=== PATIENT | male | born 1990 | race American Indian/Alaskan Native ===

== ENCOUNTER 2019-09-11 11:43 | Emergency (ER) | payer SELFPAY ==
[2019-09-11] MEDS ORDERED: levETIRAcetam 1000 MG/NS 0.75% 1,000 MG/100 ML BAG IV ONE (11:59)
[2019-09-11] MEDS ORDERED: SODIUM CHLORIDE 0.9% 1000 ML 1,000 ML IV ONE (11:59)
[2019-09-11] MEDS ORDERED: LORazepam 2 MG/ML VIAL IV PRN ×3 (12:04)
--- NOTE | 2019-09-11 12:05 | Emergency Department Report ---
ED Seizure HPI - General Chief Complaint: Seizure Stated Complaint: SEIZURE Time Seen by Provider: 09/11/19 11:54 Source: EMS Mode of arrival: Stretcher Limitations: No Limitations - History of Present Illness Initial Comments: Patient is 29 years old male with no significant past medical history. Patient brought to the emergency room from his work for evaluation of possible seizure. Patient coworker stated that patient was taking trash when all of a sudden fell backward and started convulsing for a few seconds and then he went to sleep after that. Patient stated that he does not remember any of that. Patient is now alert, oriented x3 in no acute distress. Patient is complaining of mild headache. Patient also presented with abrasion to the scalp, posterior side. On further questioning patient informed me that he has been drinking daily, he stated that he drink beer. Patient denied any visual hallucination but he admitted that he has been having some tremor and shaking. Patient denied any history of seizure before. No family history of seizure also. Patient started on a seizure precaution in the emergency room and started on Keppra. CHILO protocol calculated for possible alcohol withdrawal. Complaint: possible seizure -: Sudden, This morning Description of Episode: loss of consciousness, tonic-clonic movement, post-event confusion Witnessed:: Yes Trauma: Yes Place: work Possible Precipitating Event: alcohol withdrawal Associated Symptoms: denies other symptoms Treatments Prior to Arrival: none - Related Data Allergies Allergy/AdvReac Type Severity Reaction Status Date / Time No Known Allergies Allergy Unverified 09/11/19 12:12 ED Review of Systems ROS: Stated complaint: SEIZURE Other details as noted in HPI Comment: All other systems reviewed and negative Constitutional: denies: chills, fever Respiratory: denies: cough, shortness of breath, SOB with exertion, SOB at rest, wheezing Cardiovascular: denies: chest pain, palpitations Gastrointestinal: denies: abdominal pain, nausea, vomiting, diarrhea, constipation, hematemesis, melena, hematochezia Genitourinary: denies: urgency, dysuria, hematuria Musculoskeletal: denies: back pain Neurological: headache. denies: weakness, numbness, paresthesias, confusion, abnormal gait Psychiatric: denies: depression, auditory hallucinations, visual hallucinations, homicidal thoughts, suicidal thoughts ED Physical Exam - General Limitations: No Limitations General appearance: alert, in no apparent distress - Head Head exam: Present: other (Abrasion to the scalp, occipital.) - Eye Eye exam: Present: normal appearance, PERRL - ENT ENT exam: Present: normal exam, normal orophraynx, mucous membranes moist - Neck Neck exam: Present: normal inspection, full ROM. Absent: tenderness, meningismus, lymphadenopathy, thyromegaly - Respiratory Respiratory exam: Present: normal lung sounds bilaterally - Cardiovascular Cardiovascular Exam: Present: regular rate, normal rhythm, normal heart sounds - GI/Abdominal GI/Abdominal exam: Present: soft, normal bowel sounds. Absent: distended, tenderness, guarding, rebound, rigid, organomegaly, mass, bruit, pulsatile mass, hernia - Extremities Exam Extremities exam: Present: normal inspection, full ROM, normal capillary refill. Absent: tenderness, pedal edema, joint swelling, calf tenderness - Back Exam Back exam: Present: normal inspection, full ROM. Absent: CVA tenderness (R), CVA tenderness (L) - Neurological Exam Neurological exam: Present: alert, oriented X3, CN II-XII intact - Psychiatric Psychiatric exam: Present: normal mood - Skin Skin exam: Present: warm, intact, normal color ED Course Vital Signs 09/11/19 09/11/19 11:58 12:03 Temperature 98.3 F Pulse Rate 82 Respiratory 13 15 Rate Blood Pressure 147/95 O2 Sat by Pulse 100 100 Oximetry ED Medical Decision Making - Lab Data Result diagrams: 09/11/19 12:05 09/11/19 12:05 - EKG Data -: EKG Interpreted by Me EKG shows normal: sinus rhythm Rate: normal - EKG Data Interpretation: no acute changes - Radiology Data Radiology results: report reviewed - Medical Decision Making Patient is 29 years old male with no significant past medical history. Patient brought to the emergency room from his work for evaluation of possible seizure. Patient coworker stated that patient was taking trash when all of a sudden fell backward and started convulsing for a few seconds and then he went to sleep after that. Patient stated that he does not remember any of that. Patient is now alert, oriented x3 in no acute distress. Patient is complaining of mild headache. Patient also presented with abrasion to the scalp, posterior side. On further questioning patient informed me that he has been drinking daily, he stated that he drink beer. Patient denied any visual hallucination but he admitted that he has been having some tremor and shaking. Patient denied any history of seizure before. No family history of seizure also. Patient started on a seizure precaution in the emergency room and started on Keppra. CIWA prot ocol calculated for possible alcohol withdrawal. No seizure activity observed. CIWA score is 5. Patient received 1 g of Keppra IV. CT brain is negative for acute finding. Patient found to be hypoglycemic with a blood sugar of 56. Patient received dextrose 50 mg and started a meal tray. Repeated blood sugar showed significant improvement and no evidence of hypoglycemia. Patient is currently alert, oriented x4 and in no acute distress. Patient be discharged home to follow-up with his primary care physician. Patient advised not to drive or operate heavy machinery. Patient advised to re turn to the ER if he develop any new symptoms. Critical care attestation.: If time is entered above; I have spent that time in minutes in the direct care of this critically ill patient, excluding procedure time. ED Disposition Clinical Impression: New onset seizure, Acute metabolic encephalopathy due to hypoglycemia Disposition: DC-01 TO HOME OR SELFCARE Is pt being admited?: No Condition: Stable Instructions: Non-diabetic Hypoglycemia (ED), New-Onset Seizure in Adults (ED) Referrals: [facility] [Provider Group] - 3-5 Days
[2019-09-11 12:29] LABS: Basophils # (Auto) 0.1 K/mm3 (0.0-0.1); Basophils % (Auto) 1.2 % (0.0-1.8); Eosinophils # (Auto) 0.1 K/mm3 (0.0-0.4); Eosinophils % (Auto) 0.9 % (0.0-4.3); Hematocrit 41.7 % (35.5-45.6); Hemoglobin 14.1 gm/dl (11.8-15.2); Lymphocytes % (Auto) 17.5 % (13.4-35.0); Mean Corpuscular HGB Conc 34 % (32-34); Mean Corpuscular Volume 98 fl (84-94); Monocytes # (Auto) 0.3 K/mm3 (0.0-0.8); Monocytes % (Auto) 4.5 % (0.0-7.3); Red Blood Count 4.25 M/mm3 (3.65-5.03); Red Cell Distribution Width 15.4 % (13.2-15.2)
[2019-09-11 12:34] LABS: Platelet Count 95 K/mm3 (140-440)
[2019-09-11 12:44] LABS: Alanine Aminotransferase 99 units/L (7-56); Albumin 4.9 g/dL (3.9-5); BUN/Creatinine Ratio 15; Bilirubin,Direct < 0.2 mg/dL (0-0.2); Blood Urea Nitrogen 12 mg/dL (9-20); Calcium 9.8 mg/dL (8.4-10.2); Hemolysis Index 10
[2019-09-11] MEDS ORDERED: DEXTROSE 50% IN WATER (25GM) 50 ML SYRINGE IV ONE ×2 (12:54→13:01)
--- NOTE | 2019-09-11 13:19 | Cat Scan Report ---
CT HEAD WITHOUT CONTRAST INDICATION / CLINICAL INFORMATION: Seizure/new onset. TECHNIQUE: All CT scans at this location are performed using CT dose reduction for ALARA by means of automated e xposure control. COMPARISON: None available. FINDINGS: HEMORRHAGE: No evidence of intracranial hemorrhage or extra-axial fluid collection. EXTRA-AXIAL SPACES: Cortical sulci, sylvian fissures and basilar cisterns have an unremarkable appear ance. VENTRICULAR SYSTEM: The ventricular system is of normal size and configuration. CEREBRAL PARENCHYMA: No areas of abnormal brain parenchymal attenuation are identified. There is no i ndication of recent infarction. MIDLINE SHIFT OR HERNIATION: There is no mass effect. CEREBELLUM / BRAINSTEM: Brainstem and cerebellum have an unremarkable appearance. MIDLINE STRUCTURES:No abnormalities of the pituitary gland or pineal region are identified. INTRACRANIAL VESSELS:No abnormalities are identified on this noncontrast head CT. ORBITS: visualized portions of the orbits have an unremarkable appearance. SOFT TISSUES of HEAD: No significant abnormality. CALVARIUM: Evaluation of bone windows reveals no abnormalities. PARANASAL SINUSES / MASTOID AIR CELLS: Paranasal sinuses are free from inflammatory mucosal disease. Mastoid air cells are normally pneumatized. IMPRESSION: 1. No abnormalities are identified on head CT without contrast. Signer Name: Robe Tatum MD Signed: 09/11/2019 1:14 PM Workstation Name: [id number]
[2019-09-11 13:36] LABS: Bilirubin,Urine NEG (Negative); Blood,Urine MOD (Negative); Color,Urine Yellow (Yellow); Urobilinogen,Urine < 2.0 mg/dL (<2.0)
[2019-09-11 13:39] LABS: WBC,Urine < 1.0 /HPF (0.0-6.0)
[2019-09-11 13:44] LABS: Amphetamine Screen,Urine PRESUMPTIVE NEGATIVE; Benzodiazepines Screen,Urine PRESUMPTIVE NEGATIVE; Cocaine Screen,Urine PRESUMPTIVE NEGATIVE; Methadone Screen,Urine PRESUMPTIVE NEGATIVE; Opiate Screen,Urine PRESUMPTIVE NEGATIVE
[2019-09-11 14:03] LABS: Cannabinoid Screen,Urine PRESUMPTIVE POSITIVE
[2019-09-11 16:48] VITALS: BP 147/87
== END 2019-09-11 17:18 | disposition home or self-care (01) ==
LOC: ED 11:43
DX: G93.41 Metabolic encephalopathy (principal); G40.909 Epilepsy, unspecified, not intractable, without status epilepticus
CPT/HCPCS: 36415; 70450; 80048; 80076; 80307; 81001; 82962; 83735; 84100; 85025; 93005; 96365; 96375; 99284; J1953; J7030; 80320; G0480